=== PATIENT | male | born 1985 | race Caucasian/White ===

== ENCOUNTER 2019-05-22 01:33 | Emergency (ER) | payer MEDICAID ==
[2019-05-22] MEDS ORDERED: Ketorolac 60 MG/2 ML SDV IM ONE (02:35)
--- NOTE | 2019-05-22 02:41 | EDM.PDOC ---
ED HPI GENERAL MEDICAL PROBLEM - General Chief Complaint: Flank Pain Stated Complaint: LEFT SIDE/BACK PAIN Time Seen by Provider: 05/22/19 02:31 Source of Information: Reports: Patient, Family, RN Notes Reviewed History Limitations: Reports: No Limitations - History of Present Illness INITIAL COMMENTS - FREE TEXT/NARRATIVE: 34-year-old gentleman presents emergency department with a complaint of right- sided flank pain. He has a known history of nephrolithiasis last was about 6 years ago he states this feels very similar pain gets very intense and then will relax. 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 (see below) Other Treatments GRINDER SETUP OPERATOR: unknown Left Flank Pain Score (Numeric/FACES): 5 - Related Data Allergies Allergy/AdvReac Type Severity Reaction Status Date / Time No Known Allergies Allergy Verified 05/22/19 02:23 Home Meds: Home Meds NK [No Known Home Meds] 02/10/17 [History] Past Medical History Genitourinary History: Reports: Renal Calculus Musculoskeletal History: Reports: Other (See Below) Other Musculoskeletal History: left shoulder pain - Infectious Disease History Infectious Disease History: Reports: Chicken Pox Social & Family History - Tobacco Use Smoking Status *Q: Never Smoker Second Hand Smoke Exposure: No - Caffeine Use Caffeine Use: Reports: Coffee, Soda - Recreational Drug Use Recreational Drug Use: No ED ROS GENERAL - Review of Systems Review Of Systems: See Below Constitutional: Reports: No Symptoms Respiratory: Reports: No Symptoms Cardiovascular: Reports: No Symptoms GI/Abdominal: Denies: Nausea, Vomiting : Reports: Flank Pain. Denies: Hematuria ED EXAM, RENAL/ - Physical Exam Exam: See Below Exam Limited By: No Limitations General Appearance: Alert, WD/WN, No Apparent Distress GI/Abdominal: Soft, Non-Tender Course - Vital Signs Last Recorded V/S: Last Vital Signs Temp 97.7 F 05/22/19 02:25 Pulse 72 05/22/19 02:25 Resp 19 05/22/19 02:25 BP 148/95 H 05/22/19 02:25 Pulse Ox 100 05/22/19 02:25 - Orders/Labs/Meds Orders: Active Orders 24 hr Category Date Time Status UA W/MICROSCOPIC [URIN] Stat Lab 05/22/19 02:17 Stop Req Meds: Medications Discontinued Medications Generic Name Dose Route Start Last Admin Trade Name Artem PRN Reason Stop Dose Admin Ketorolac Tromethamine 60 mg 05/22/19 02:35 Toradol IM 05/22/19 02:36 ONETIME ONE Departure - Departure Time of Disposition: 02:40 Disposition: Home, Self-Care 01 Condition: Fair Clinical Impression: Right flank pain - Discharge Information Instructions: Flank Pain, Adult Referrals: PCP,None [Primary Care Provider] - Additional Instructions: Use the ketorolac as needed for baseline pain control use the hydrocodone for breakthrough pain take the Flomax every day until you pass the stone, please followup with your primary care provider in 3-5 days if not better, please call return to the emergency department with worsening of symptoms. Sepsis Event Note - Evaluation Sepsis Screening Result: No Definite Risk - Focused Exam Vital Signs: Vital Signs Temp Pulse Resp BP Pulse Ox 05/22/19 02:25 97.7 F 72 19 148/95 H 100 05/22/19 02:08 96 F L 76 18 146/97 H 100 Date Exam was Performed: 05/22/19 Time Exam was Performed: 02:36 - My Orders Last 24 Hours: My Active Orders 05/22/19 02:17 UA W/MICROSCOPIC [URIN] Stat - Assessment/Plan Last 24 Hours: My Active Orders 05/22/19 02:17 UA W/MICROSCOPIC [URIN] Stat Plan: Assessment Acuity = acute Site and laterality = right-sided flank pain Etiology = suspicious for underlying nephrolithiasis Manifestations = none Location of injury = Home Lab values = none Plan I did talk to him about the possibility of image study to further evaluate and make a definitive diagnosis he declined at this time he had some relief from the Toradol injection provided in the ED prescription written for ketorolac 10 mg 1 tab p.o. every 6 hours PRN total #20 also Flomax 0.4 mg 1 tab p.o. daily total #30 also hydrocodone 1 tablet p.o. every 4-6 hours as needed they are to 5 /325 total #10, and follow-up primary care 3 to 5 days if no improvement This note was dictated using [employer] voice recognition software please call with any questions on syntax or grammar.
== END 2019-05-22 02:55 | disposition home or self-care (01) ==
LOC: JP.ED 01:33
DX: R10.9 Unspecified abdominal pain (principal)
CPT/HCPCS: 81001; 96372; 99284; J1885